=== PATIENT | male | born 1965 | race Caucasian/White ===

== ENCOUNTER → 2016-04-17 | Outpatient (CLI) | payer BC ==
[~2016-04-17] MED LIST: ASCO500T20 PO; CEPH-331 PO; CLOT45CR TP; GLYB2.5T4 PO; GLYB5TAB6 PO; HYDR-3702 PO; IBUP-30 PO; MULT-593 PO; NO HOME MEDS; SITA1TAB6 PO
[2016-04-17 14:01] VITALS: BP 148/87
--- NOTE | 2016-04-17 14:01 | Urgent Care T Sheet Gen (E) ---
Intake General Temperature (Fahrenheit): 97.4 Pulse: 69 Blood Pressure Systolic: 148 Blood Pressure Diastolic: 87 Respirations: 16 SPO2: 98 Chief Complaint: Skin Condition Description of Symptoms Complains of a rash to his feet. Over Xmas was in [place] and wore hiking boots, there is a clear demarcation on both feet and ankle and over top of foot , no bleeding but scaley rash with few excoriations noted , no necrosis reported , no fevers, he was in [place] last year for 6 days due to leg pain from Diabetes. He is a type 2- has been for 11 years. last A1C 9.6- Dr Espinoza in [place] manages him Source: Patient History of Present Illness Onset & Duration: Weeks Recent Trauma: No Allergies: Coded Allergies: No Known Drug Allergies (Unverified , 01/07/16) Home Meds Active Scripts Betamethasone/Clotrimazole (Lotrisone Cream 45 gm)45 Gm Tube45 Gm TP BID #1 TUBE Apply to feet BID sparingly x 10days Prov:MANFRED JACKSON APRN () 04/17/16 Cephalexin (Keflex)500 Mg [id number] Mg PO BID Infection #14 CAP Ref 0 Prov:MANFRED JACKSON APRN () 04/17/16 Reported Medications Ibuprofen (Advil)200 Mg Tablet2 Tab PO Q4H PRN PAIN 01/07/16 Hydrocodone/Acetaminophen ([place] 5mg/325mg)1 Each Tablet1 Tab PO Q4H PRN PAIN Ref 0 01/07/16 Glyburide 2.5 Mg Tablet2.5 Mg PO DAILY 01/07/16 Sitagliptin Phos/Metformin HCl (Janumet 50-1,000 mg Tablet)1 Each Tablet1 Each PO BID 01/07/16 Respiratory Constitutional Symptoms: No syptoms reported EENTM: No symptoms reported Respiratory: No symptoms reported Cardiovascular: No symptoms reported Skin: Rash (both feet and ankle bilaterally) All Other Systems Reviewed Remaining Systems: All other systems reviewed with negative findings Past Lakpybu-Vvebyi-Sczewp Hx Patient's Social History Alcohol Use: Denies Use Recreational Drug Use: Denies Use Smoking Status: Never smoker Recent foreign travel: No Surgeries/Hospitalizations Hospitalization/Surgery Hx: DM-2, LASIK Respiratory Respiratory History: None Cardiovascular Cardiovascular History: None Reproductive System Sexually Transmitted Diseases: No Gastrointestinal GI/Endocrine History: None Diabetes Diabetes: NIDDM Oral med controlled HEENT Impaired Vision: None Hearing Impaired: None Psychosocial Behavior Disorders: None Physical Exam Physical Exam General Appearance: WD/WN No apparent distress Eyes, Ears, Nose, Throat Ex: PERRL/EOMI Respiratory Exam: Lungs clear Normal breath sounds No respiratory distress No accessory muscles usedNo Accessory muscle use Cardiovascular Exam: Regular rate, rhythm No murmur Skin Exam: Rash (both feet and ankles with red scaley, raised rash with excoritations, nontender, between toes areas of fungal, no open lesion, good pulses, looks like contact dermatitis- he later realizes its from hiking boots he wore recently in [place]. both feet have exact demarcation of boot line, no blisters no open lesions) Departure Urgent Care Impression Chief Complaint: UC Skin Condition Impression: Primary Impression: Skin rash Departure Disposition: 01 HOME OR SELF-CARE Condition: Stable Referrals: Damian Espinoza (PCP) Additional Instructions: Long talk with him likely from wearing leather boots and feet got sweaty- causing fungal infection f/u Diabetic doctor next week- appt scheduled tylenol for pain or fever no further soaking of feet in hot water keep clean and dry monitor skin He agrees to plan of care Wear flip flops when possible and not barefoot- avoid those hiking boots until this clears Scripts Betamethasone/Clotrimazole (Lotrisone Cream 45 gm)45 Gm Tube45 Gm TP BID #1 TUBE Apply to feet BID sparingly x 10days Prov:MANFRED JACKSON APRN () 04/17/16 Cephalexin (Keflex)500 Mg [id number] Mg PO BID Infection #14 CAP Ref 0 Prov:MANFRED JACKSON APRN () 04/17/16 End of report . MANFRED JACKSON APRN () Apr 17, 2016 14:01
== END ==
LOC: MHUC 13:53
PROVIDERS: ATTEND Nurse Practitioner
DX: R21 Rash and other nonspecific skin eruption (principal)
CPT/HCPCS: 99213

== ENCOUNTER 2016-05-04 10:48 | Observation (INO) | payer BC ==
[~2016-05-04] VITALS: Ht 182.9 cm; Wt 90.1 kg
--- NOTE | 2016-05-04 10:46 | NUR ---
OFF EMS CART AND TO TOILET FOR LOOSE BM. HAS HAD ONE LOOSE STOOL AND ONE EPISODE OF DIARRHEA AT SCENE.
[2016-05-04] MEDS ORDERED: ONDANSETRON 2 MG/ML (Z0FRAN) 2 ML VIAL IV ONE (10:50)
[2016-05-04] MEDS ORDERED: SODIUM CHLORIDE FLUSH 3 ML SYR IV PRN (10:50)
[2016-05-04] MEDS ORDERED: SODIUM CHLORIDE 250 ML IV PRN (10:50)
[2016-05-04] MEDS ORDERED: SODIUM CHLORIDE FLUSH 10 ML SYR IV PRN (10:50)
--- NOTE | 2016-05-04 10:50 | NUR ---
NOW OFF TOILET WASHING HANDS.
--- NOTE | 2016-05-04 10:53 | NUR ---
DENIES NCHEST DISCOMFORT.
[2016-05-04 11:00] LABS: BASOPHILS % (AUTO) 0 % (0-2); EOSINOPHILS # (AUTO) 0.2 10^3uL; EOSINOPHILS % (AUTO) 4 % (0-4); LYMPHOCYTES # (AUTO) 2.1 X10^3; MEAN CORPUSCULAR HEMOGLOBIN 30.8 PG (26.0-34.0); MEAN CORPUSCULAR VOLUME 81 FL (80-100); MEAN PLATELET VOLUME 9.8 FL (6.0-9.5); MONOCYTES # (AUTO) 0.4 X10^3; MONOCYTES % (AUTO) 8 % (3-11); NEUTROPHILS # (AUTO) 2.6 X10^3; NEUTROPHILS % (AUTO) 49 % (51-67); PLATELET COUNT 324 10^3uL (150-450); WHITE BLOOD COUNT 5.41 10^3uL (4.0-11.0)
[2016-05-04 11:03] LABS: MEAN CORPUSCULAR HGB CONC 38.1 g/dL (31.0-37.0)
[2016-05-04 11:09] LABS: ALBUMIN 4.8 g/dL (3.4-5.0); ALKALINE PHOSPHATASE 124 U/L (38-126); ANION GAP 19.1 MEQ/L (3-15); BUN/CREATININE RATIO 16 (10-20); CALCULATED IONIZED CALCIUM 4.1 mg/dL (3.8-4.6); CREATINE KINASE 70 U/L (55-170)
[2016-05-04 11:36] LABS: AMYLASE* 92 U/L (25-115); LIPASE* 279 U/L (23-300)
--- NOTE | 2016-05-04 11:46 | NUR ---
CONTINUES TO DENY CHEST DISCOMFORT, NAUSEA, SOA, OR DIARRHEA.
--- NOTE | 2016-05-04 11:46 | NUR ---
HAS BEEN FEELING "COLD" SINCE ARRIVAL. BOLIVAR BLANKETS ON AND DR. TOWNSEND AWARE THAT PT COMPLAINS OF FEELING COLD.
--- NOTE | 2016-05-04 12:05 | NUR ---
CONTINUES TO DENY CHEST DISCOMFORT, SOA, NAUSEA, OR DIAPHORESIS.
--- NOTE | 2016-05-04 14:27 | NUR ---
DR TOWNSEND TEXTS DR PUENTES RE ERVIN ADMIT TO [facility].
--- NOTE | 2016-05-04 14:28 | NUR ---
Has been up to toilet to urinate and tolerated well. Denies nausea, or pain, or diarrhea. Reports he feels "hungry" now. Understands instructions not to eat or drink anything for now. Skin color back to normal - no longer flushed. Family in room with patient.
--- NOTE | 2016-05-04 14:44 | NUR ---
DR PUENTES TALKS WITH DR TOWNSEND. CL
--- NOTE | 2016-05-04 15:25 | NUR ---
Continues to deny any discomfort, nausea, shortness of air, or diaphoresis. Still feeling a little hungry.
[2016-05-04] MEDS ORDERED: NITROGLYCERIN SUBLINGUAL 0.4 MG (NITROQUICK) TABLET SL PRN (15:55)
[2016-05-04] MEDS ORDERED: ONDANSETRON 4 MG (ZOFRAN) ORAL DISSOLVE TAB PO PRN (15:55)
[2016-05-04] MEDS ORDERED: ONDANSETRON 2 MG/ML (Z0FRAN) 2 ML VIAL IV PRN (15:55)
[2016-05-04] MEDS ORDERED: ACETAMINOPHEN 325 MG TAB (TYLENOL) PO PRN (15:55)
[2016-05-04] MEDS ORDERED: MAG HYDROX/AL HYDROX/SIMETH 200-200-20/5 ML (MAG-AL PLUS) 30 ML UDC PO PRN (15:55)
[2016-05-04] MEDS ORDERED: MAGNESIUM HYDROXIDE 80MG/ML (MILK OF MAGNESIA) 30 ML UDC PO PRN (15:55)
[2016-05-04] MEDS ORDERED: CALCIUM CARBONATE CHEWABLE 300 MG (TUMS) TABLET PO PRN (15:55)
[2016-05-04] MEDS ORDERED: PROMETHAZINE HCL INJ 12.5 MG in SODIUM CHLORIDE 25 ML IV PRN (15:55)
[2016-05-04] MEDS ORDERED: POLYETHYLENE GLYCOL 17 GM (MIRALAX) PACKET PO PRN (15:55)
[2016-05-04] MEDS ORDERED: DOCUSATE SODIUM 100 MG (COLACE) CAP PO PRN (15:55)
[2016-05-04 15:58] VITALS: BP 100/75
[2016-05-04 15:59] VITALS: BP 100/75
[2016-05-04] MEDS ORDERED: HYDROcodone/APAP 5 MG/325 MG (NORCO) TAB PO PRN (16:10)
[2016-05-04] MEDS ORDERED: DEXTROSE ORAL GEL (GLUTOSE 40%) 15 GM TUBE PO PRN (16:10)
[2016-05-04] MEDS ORDERED: GLUCAGON EMERGENCY 1 MG/KIT IM PRN (16:10)
[2016-05-04] MEDS ORDERED: DEXTROSE 50% 25 GM/50 ML SYRINGE IV PRN (16:10)
--- NOTE | 2016-05-04 16:30 | NUR ---
patient arrives to room 308 at this time. weight and vs taken. patient is alert and oriented without complaint. Dr. Dodd is in to see the patient shortly after
[2016-05-04] MEDS: sitaGLIPtin 50 MG (JANUVIA) TAB PO SCH (17:45)
[2016-05-04] MEDS: metFORMIN 1000 MG (GLUCOPHAGE) TABLET PO SCH (17:45)
[2016-05-04] MEDS: INSULIN LISPRO 1 UNIT/0.01 ML (HUMALOG) DOSE SC SCH ×2 (17:46→21:00)
--- NOTE | 2016-05-04 18:00 | NUR ---
Admission process is complete. The patient is able to make needs known. He has no complaints. VSS. He is currently up in bed on computer. Report is given to Lindsay NAVARRETE and care relinquished.
[2016-05-04 20:37] VITALS: BP 109/57
--- NOTE | 2016-05-04 22:56 | NUR ---
Troponin value reported to Dr. Dodd
[2016-05-05 00:29] VITALS: BP 114/57
--- NOTE | 2016-05-05 04:24 | NUR ---
c/o mild headache. Tylenol given. Denies chest pain or pressure. States, "I'm good."
[2016-05-05 04:45] VITALS: BP 117/72
--- NOTE | 2016-05-05 05:58 | NUR ---
Has slept well and throughout night has denied chest pain or pressure. Telemetry has shown Sinus Rhythm throughout night.
[2016-05-05 06:02] LABS: MEAN CORPUSCULAR HEMOGLOBIN 31.2 PG (26.0-34.0); MEAN CORPUSCULAR VOLUME 83 FL (80-100); MEAN PLATELET VOLUME 9.4 FL (6.0-9.5); PLATELET COUNT 203 10^3uL (150-450); WHITE BLOOD COUNT 8.24 10^3uL (4.0-11.0)
[2016-05-05 06:09] LABS: MEAN CORPUSCULAR HGB CONC 37.4 g/dL (31.0-37.0)
[2016-05-05 06:18] LABS: BAND NEUTROPHILS % 0 % (0-6); EOSINOPHILS % 16 % (0-4); LYMPHOCYTES # 1.2 #; MONOCYTES # 0.4 #; MONOCYTES % 5 % (3-11); RBC MORPH SEE REFERENCE (NORMAL); SEGMENTED NEUTROPHILS % 58 % (51-67); TOTAL CELLS COUNTED 100
[2016-05-05 06:19] LABS: ANISOCYTOSIS SLIGHT
[2016-05-05] MEDS: INSULIN LISPRO 1 UNIT/0.01 ML (HUMALOG) DOSE SC SCH ×2 (06:26→11:30)
[2016-05-05 06:34] LABS: ALBUMIN 3.6 g/dL (3.4-5.0); CALCULATED IONIZED CALCIUM 4.3 mg/dL (3.8-4.6); TOTAL PROTEIN 6.2 g/dL (6.4-8.5)
[2016-05-05] MEDS ORDERED: MULTIVITAMIN W/MINERALS (THERAGRAN M) TABLET PO SCH (08:00)
[2016-05-05] MEDS: sitaGLIPtin 50 MG (JANUVIA) TAB PO SCH (08:26)
[2016-05-05] MEDS: metFORMIN 1000 MG (GLUCOPHAGE) TABLET PO SCH (08:26)
[2016-05-05 08:27] VITALS: BP 127/71
[2016-05-05] MEDS ORDERED: MULTIVITAMIN WITH MINERALS PO SCH (09:00)
[2016-05-05] MEDS ORDERED: glyBURIDE 5 MG (MICRONASE) TAB PO SCH (09:00)
[2016-05-05] MEDS ORDERED: ASCORBIC ACID 500 MG (VITAMIN C) TABLET PO SCH (09:00)
--- NOTE | 2016-05-05 10:13 | NUR ---
Pt. has been resting in bed. He denies any chest pain or shortness of breath. SR on monitor. He is hoping to be dismissed today.
[2016-05-05 11:35] VITALS: BP 133/77
--- NOTE | 2016-05-05 12:42 | NUR ---
Discharge instructions have been reviewed with pt. Copy given to pt. and original signed. has been notified of discharge, she will transport pt. home.
--- NOTE | 2016-05-05 13:05 | NUR ---
Pt. dismissed to home, ambulatory, accompanied by VITAMIN MANAGER and spouse. All belongings sent with pt.
== END 2016-05-05 13:05 | disposition home or self-care (01) ==
LOC: EDUNIT# 10:48 → ED 10:49 → MED/SURG 15:30 → INTOOBSV 15:30
PROVIDERS: ADMIT Internal Medicine; ATTEND Internal Medicine
DX: K52.9 Noninfective gastroenteritis and colitis, unspecified (principal); R07.89 Other chest pain; E11.65 Type 2 diabetes mellitus with hyperglycemia; E86.0 Dehydration; K75.9 Inflammatory liver disease, unspecified; E78.5 Hyperlipidemia, unspecified; E11.44 Type 2 diabetes mellitus with diabetic amyotrophy; G89.29 Other chronic pain; L25.8 Unspecified contact dermatitis due to other agents; Z79.84 Long term (current) use of oral hypoglycemic drugs
CPT/HCPCS: 36415; 71010; 80053; 80061; 82150; 82550; 82553; 83036; 83690; 84484; 85025; 85610; 85730; 93005; 96360; 96361; 99285; J1815; J7030; 93010; 99218

== ENCOUNTER → 2016-05-04 | Outpatient (CLI) | payer BC | LOC: EMS 10:45 | PROVIDERS: ATTEND Family Medicine | DX: R07.89 Other chest pain (principal); R11.2 Nausea with vomiting, unspecified; R19.7 Diarrhea, unspecified ==